=== PATIENT | female | born 1990 | race Caucasian/White ===

== ENCOUNTER 2017-11-23 17:36 | Emergency (ER) | payer BC ==
[~2017-11-23] VITALS: Ht 167.6 cm; Wt 50.5 kg
[~2017-11-23 17:36] MED LIST: ALBUTEROL SULF8.5 GM IH; ATARAX,VISTARIL50 MG PO; HYCODAN SYRUP480 ML PO; ORTHO TRICYCLINE; VIBRAMYCIN100 MG PO; bcp
[2017-11-23 18:23] LABS: APPEARANCE CLEAR ((CLEAR)); BILIRUBIN NEGATIVE; BLOOD NEGATIVE; COLOR STRAW ((YELLOW)); GLUCOSE (STRIP) NEGATIVE; KETONES NEGATIVE; LEUKOCYTES NEGATIVE; NITRITE NEGATIVE; PROTEIN (STRIP) NEGATIVE; SPECIFIC GRAVITY 1.004 (1.000-1.030); UCUL ADDED? NO; UROBILINOGEN 0.2 MG/DL (0.2-1.0)
[2017-11-23 18:35] LABS: HEMATOCRIT 36.5 % (36.0-46.0); HEMOGLOBIN 12.9 G/DL (11.9-15.5); MCH 31.9 PG (29.0-34.0); MCHC 35.3 G/DL (30.0-36.0); MCV 90.1 FL (83-99); PLATELET COUNT 182 K/uL (156-360); RBC DIS.WIDTH-CV 11.3 % (11.8-14.6); RBC DIS.WIDTH-SD 37.2 % (39-53); RED BLOOD COUNT 4.05 M/uL (3.80-5.20); WHITE BLOOD COUNT 4.2 K/uL (4.1-10.2)
[2017-11-23 18:44] LABS: ALBUMIN 4.5 g/dL (3.2-4.8); CHLORIDE 107 mEq/L (99-109); POTASSIUM 3.3 mEq/L (3.7-5.4); SODIUM 137 mEq/L (136-147)
[2017-11-23 18:47] LABS: GLUCOSE 91 mg/dL (70-99)
[2017-11-23 18:49] LABS: TOTAL BILIRUBIN 0.3 mg/dL (0.0-1.0)
[2017-11-23 18:50] LABS: ALKALINE PHOSPHATASE 50 IU/L (3-129); CREATININE 0.8 mg/dL (0.6-1.3); GFR ESTIMATE (CALCULATED) > 59 mL/min/
[2017-11-23 18:51] LABS: UREA NITROGEN (BUN) 9 mg/dL (9-23)
[2017-11-23 18:52] LABS: AST (GOT) 20 IU/L (2-34)
[2017-11-23 18:53] LABS: ALT (GPT) 17 IU/L (3-49)
[2017-11-23 19:08] LABS: QUANTITATIVE HCG < 4.0 MIU/ML
[2017-11-23] MEDS ORDERED: ZANTAC150 MG PO (19:28)
[2017-11-23] MEDS ORDERED: ZOFRAN4 MG PO (19:28)
[2017-11-23 20:05] VITALS: BP 109/70
== END 2017-11-23 20:06 | disposition home or self-care (01) ==
LOC: EME 17:36 → EXP 17:36
DX: R11.2 Nausea with vomiting, unspecified (principal); R19.7 Diarrhea, unspecified; Z88.2 Allergy status to sulfonamides; F17.210 Nicotine dependence, cigarettes, uncomplicated
CPT/HCPCS: 80053; 81003; 84702; 85027; 99281; 99284